=== PATIENT | female | born 1955 | race Caucasian/White ===

== ENCOUNTER 2017-03-04 01:39 | Inpatient (IN) | payer OTHER ==
[~2017-03-04] VITALS: Ht 162.6 cm; Wt 99.8 kg
[~2017-03-04 01:39] MED LIST: ALPR-475 PO; AMLO1CAP PO; AMLO1CAP5; ATOR10TA9 PO; CALC-670 PO; CETI10TA24 PO; CITA20TA5 PO; DARI7.5T3; DICY20TA3 PO; DOCU-131 PO; ESOM40CA PO; FEXO60TA; FLUT16SP2; FLUT1DIS3 INH; GLUC1TAB64; LACT1CAP35 PO; LEVA15HF4; LEVO500T47 PO; LIRA0.6P SQ; METF500T27 PO; MULT-658 PO; OMEP40CA6 PO; ONDA4TAB10 PO; OXYC500S PO; ROSE HIPS PO; SIMV40TA3 PO; SOLI10TA2 PO; VIT C PO; VIT D3 PO; ZINC PO; toradol PO
[2017-03-04] MEDS ORDERED: PROMETHAZINE 25 MG/ML, 1ML ONE (01:59)
[2017-03-04] MEDS ORDERED: HYDROmorphone 1 MG/ML, 1ML ONE (01:59)
[2017-03-04] MEDS ORDERED: HYDROmorphone 1 MG/ML, 1ML IVPush PRN (02:00)
[2017-03-04] MEDS ORDERED: SODIUM CHLORIDE 0.9% 1,000ML IVBOLUS ONE ×2 (02:00→03:30)
[2017-03-04] MEDS ORDERED: ONDANSETRON 2MG/ML, 2ML IVPush ONE ×2 (02:00)
[2017-03-04] MEDS ORDERED: PROMETHAZINE 25 MG/ML, 1ML IM ONE (02:00)
[2017-03-04] MEDS ORDERED: ONDANSETRON 2MG/ML, 2ML ONE (02:00)
[2017-03-04] MEDS ORDERED: SODIUM CHLORIDE FLUSH 10ML SYR IVF ONE (02:00)
[2017-03-04 02:04] LABS: HEMATOCRIT 45.5 % (34.6-47.8); HEMOGLOBIN 14.9 g/dL (11.7-16.4); WHITE BLOOD COUNT 19.2 x10^3/uL (3.4-10)
[2017-03-04 02:13] LABS: ASPARTATE AMINO TRANSFERASE 20 U/L (15-37); BLOOD UREA NITROGEN 19 mg/dL (7-18)
[2017-03-04 02:17] LABS: DIFF TOTAL CELLS COUNTED 100 CELL DIFF
[2017-03-04 02:18] LABS: IS PT STATUS REG ER OR PRE ER? YES; VERIFY COUNTS? YES
[2017-03-04 02:20] LABS: LARGE PLATELETS 1+
[2017-03-04] MEDS ORDERED: OMNIPAQUE 350 MG/ML, 100ML BOTTLE ONE (03:07)
[2017-03-04] MEDS ORDERED: SODIUM CHLORIDE 0.9% 1,000 ML IV ONE (03:14)
[2017-03-04] MEDS ORDERED: ESCI20TA10 PO (03:17)
[2017-03-04] MEDS ORDERED: METOCLOPRAMIDE 5 MG/ML, 2ML ONE (04:38)
[2017-03-04] MEDS ORDERED: hydrALAzine 20 MG/ML, 1ML IVPush PRN (05:00)
[2017-03-04] MEDS ORDERED: ACETAMINOPHEN 325 MG TABLET PO PRN (05:00)
[2017-03-04] MEDS ORDERED: METOCLOPRAMIDE 5 MG/ML, 2ML IVPush ONE (05:00)
[2017-03-04] MEDS ORDERED: METOCLOPRAMIDE 5 MG/ML, 2ML IVPush PRN (05:00)
[2017-03-04 06:10] VITALS: BP 115/73
[2017-03-04] MEDS: morphine SULFATE 10 MG/ML, 1ML IVPush PRN ×3 (06:51→20:39)
[2017-03-04] MEDS: ENOXAPARIN 40 MG/0.4 ML SQ SCH (06:51)
[2017-03-04] MEDS: NS + 20MEQ KCL 1,000 ML IV SCH ×2 (06:51→17:59)
[2017-03-04] MEDS: LIRAGLUTIDE SQ SCH (09:00)
[2017-03-04] MEDS: TEMPLATE NON-FORMULARY MED. (Escitalopram Oxalate** (Lexapro**) 20 MG) HOMEMEDPO SCH ×2 (09:00→13:16)
[2017-03-04] MEDS: MULTIVITAMIN 1 TABLET PO SCH (09:43)
[2017-03-04] MEDS: BENAZEPRIL 20 MG TABLET PO SCH (09:43)
[2017-03-04] MEDS: AMLODIPINE 5 MG TABLET PO SCH (09:43)
[2017-03-04] MEDS: CETIRIZINE 10 MG TABLET PO SCH (09:44)
[2017-03-04] MEDS: FLUTICASONE/VILANTEROL 100-25MCG/INH INH SCH (09:44)
[2017-03-04] MEDS: PANTOPRAZOLE 40 MG IV IVPush SCH (09:46)
[2017-03-04] MEDS: ONDANSETRON 2MG/ML, 2ML IVPush PRN (13:29)
[2017-03-04] MEDS ORDERED: DEXTROSE 50%, 50ML SYRINGE IVPush PRN (16:00)
[2017-03-04] MEDS ORDERED: DEXTROSE 4 GM TAB.CHEW PO PRN (16:00)
[2017-03-04] MEDS ORDERED: GLUCAGON 1 MG IM PRN (16:00)
[2017-03-04] MEDS: INSULIN ASPART 100 UNITS/ML, PEN SQ-INSULIN SCH ×2 (16:00→21:00)
[2017-03-04 16:30] VITALS: BP 111/71
[2017-03-04 20:00] VITALS: BP 124/66
[2017-03-04] MEDS: SODIUM CHLORIDE FLUSH 10ML SYR IVF SCH (20:39)
[2017-03-04] MEDS ORDERED: ATORVASTATIN 10 MG TABLET PO SCH (21:00)
[2017-03-04] MEDS ORDERED: TEMPLATE NON-FORMULARY MED. (Solifenacin Succinate** (Vesicare**) 10 MG) HOMEMEDPO SCH (21:00)
[2017-03-05 03:00] VITALS: BP 117/75
[2017-03-05] MEDS: NS + 20MEQ KCL 1,000 ML IV SCH (03:36)
[2017-03-05] MEDS: ENOXAPARIN 40 MG/0.4 ML SQ SCH (05:27)
[2017-03-05 06:08] LABS: BLOOD UREA NITROGEN 10 mg/dL (7-18)
[2017-03-05 06:14] LABS: HEMATOCRIT 35.4 % (34.6-47.8); HEMOGLOBIN 11.8 g/dL (11.7-16.4); WHITE BLOOD COUNT 6.7 x10^3/uL (3.4-10)
[2017-03-05] MEDS: INSULIN ASPART 100 UNITS/ML, PEN SQ-INSULIN SCH ×2 (07:00→11:00)
[2017-03-05 07:49] VITALS: BP 125/74
[2017-03-05] MEDS: SODIUM CHLORIDE FLUSH 10ML SYR IVF SCH (09:00)
[2017-03-05] MEDS: AMLODIPINE 5 MG TABLET PO SCH (09:00)
[2017-03-05] MEDS: LIRAGLUTIDE SQ SCH (09:00)
[2017-03-05] MEDS: MULTIVITAMIN 1 TABLET PO SCH (09:00)
[2017-03-05] MEDS: BENAZEPRIL 20 MG TABLET PO SCH (09:00)
[2017-03-05] MEDS: CETIRIZINE 10 MG TABLET PO SCH (09:00)
[2017-03-05] MEDS: TEMPLATE NON-FORMULARY MED. (Escitalopram Oxalate** (Lexapro**) 20 MG) HOMEMEDPO SCH (09:00)
[2017-03-05] MEDS: FLUTICASONE/VILANTEROL 100-25MCG/INH INH SCH (10:28)
[2017-03-05] MEDS: PANTOPRAZOLE 40 MG IV IVPush SCH (10:28)
[2017-03-05] MEDS: ONDANSETRON 2MG/ML, 2ML IVPush PRN (13:24)
== END 2017-03-05 14:20 | disposition home or self-care (01) | DRG 74 ==
LOC: ED 02:18 → SUATTDRO 04:30 → EDIP 04:42 → 4WST 05:42 → DCLOUNGE 03-05 13:35
PROVIDERS: ADMIT Hospitalist; ATTEND Hospitalist
DX: E11.43 Type 2 diabetes mellitus with diabetic autonomic (poly)neuropathy (principal); E11.65 Type 2 diabetes mellitus with hyperglycemia; K52.9 Noninfective gastroenteritis and colitis, unspecified; D72.825 Bandemia; K31.84 Gastroparesis; D72.828 Other elevated white blood cell count; E66.9 Obesity, unspecified; E78.5 Hyperlipidemia, unspecified; E86.0 Dehydration; I10 Essential (primary) hypertension; J45.909 Unspecified asthma, uncomplicated; K21.9 Gastro-esophageal reflux disease without esophagitis; F32.9 Major depressive disorder, single episode, unspecified; K58.0 Irritable bowel syndrome with diarrhea; F41.9 Anxiety disorder, unspecified; Z90.49 Acquired absence of other specified parts of digestive tract; Z87.11 Personal history of peptic ulcer disease; Z88.0 Allergy status to penicillin; Z88.2 Allergy status to sulfonamides; Z88.4 Allergy status to anesthetic agent; Z79.4 Long term (current) use of insulin; Z68.37 Body mass index [BMI] 37.0-37.9, adult; Z88.1 Allergy status to other antibiotic agents; Z79.899 Other long term (current) drug therapy
CPT/HCPCS: 36415; 74177; 80048; 80053; 81003; 82962; 83605; 83690; 83735; 84100; 84145; 84484; 85025; 87040; 87324; 93005; 96361; 96372; 96374; 96375; J1170; J1650; J1815; J2405; J2550; J3480; Q9967; C9113; J2270; J2765; J7030

== ENCOUNTER → 2018-02-19 | Outpatient (CLI) | payer OTHER ==
[~2018-02-19] MED LIST changes: +ALBU8.5H8 INH; +AZEL23SP NAS; +BUSP10TA PO; -CITA20TA5 PO; +CITA20TA6 PO; +DEXL60CA2 PO; +ESCI20TA10 PO; +FLUC100T4 PO; +FLUTICASONE; -GLUC1TAB64; +GLUC1TAB64 PO; +LACT1CAP15 PO; +PIOG15TA66 PO; +POLY17PO5 PO
[2018-02-19 10:18] LABS: ALANINE AMINOTRANSFERASE 24 U/L (12-78); ALBUMIN 3.8 g/dL (3.4-5.0); ANION GAP 10 mmol/L (5-15); CALCIUM 9.2 mg/dL (8.5-10.1); CHLORIDE 107 mmol/L (98-107)
[2018-02-19 10:21] LABS: ALKALINE PHOSPHATASE 160 U/L (45-117); BILIRUBIN,TOTAL 0.6 mg/dL (0.2-1.0); TOTAL PROTEIN 7.8 g/dL (6.4-8.2)
== END | disposition home or self-care (01) ==
LOC: STAR 09:14
PROVIDERS: ATTEND Internal Medicine Gastroenterology
DX: Z01.818 Encounter for other preprocedural examination (principal); B37.81 Candidal esophagitis; Z88.0 Allergy status to penicillin; Z88.2 Allergy status to sulfonamides; Z88.6 Allergy status to analgesic agent
CPT/HCPCS: 36415; 80053; 93005